=== PATIENT | female | born 1975 | race Caucasian/White ===

== ENCOUNTER 2021-08-14 06:57 | Observation (INO) | payer BC, MEDICAID ==
[~2021-08-14] VITALS: Ht 124.5 cm; Wt 65.0 kg
[2021-08-14 07:46] LABS: APPEARANCE,URINE Clear (CLEAR); BASOPHILS % (AUTO) 0.9 % (0.0-5.0); BILIRUBIN,URINE Negative (NEGATIVE); COLOR,URINE Yellow (YELLOW); EOSINOPHILS % (AUTO) 3.2 % (0.0-8.0); GLUCOSE, URINE (UA) Negative (NEGATIVE); HEMATOCRIT 42.3 % (36-48); KETONES,URINE Negative (NEGATIVE); LEUKOCYTE ESTERASE ,URINE Negative (NEGATIVE); LYMPHOCYTES % (AUTO) 29.8 % (21.0-51.0); MEAN CORPUSCULAR HEMOGLOBIN 29.9 pg (27.0-33.0); MEAN CORPUSCULAR HGB CONC 32.6 g/dL (32.0-36.0); MEAN CORPUSCULAR VOLUME 91.6 fL (79-99); MONOCYTES % (AUTO) 9.5 % (3.0-13.0); NEUTROPHILS % (AUTO) 56.3 % (40.0-77.0); NITRATE,URINE Negative (NEGATIVE); OCCULT BLOOD,URINE Negative (NEGATIVE); PH,URINE 8.5 (5.0-8.0); PLATELET COUNT (AUTO) 264 K/uL (130-400); PROTEIN,URINE Negative (NEGATIVE); RED BLOOD CELL COUNT(AUTO) 4.62 MIL/uL (4.00-5.50); RED CELL DISTRIBUTION WIDTH 13.1 % (11.0-15.5); UROBILINOGEN,URINE 0.2 mg/dL (0.2-1.0); WHITE BLOOD COUNT (AUTO) 7.6 K/uL (4.8-10.8)
[2021-08-14 07:55] LABS: AMPHET/METH SCREEN,URINE NEGATIVE (NEGATIVE); BARBITURATE SCREEN, URINE NEGATIVE (NEGATIVE); BENZODIAZEPINES SCREEN,URINE NEGATIVE (NEGATIVE); CANNABINOID SCREEN,URINE POSITIVE (NEGATIVE); COCAINE SCREEN,URINE NEGATIVE (NEGATIVE); OPIATE SCREEN,URINE NEGATIVE (NEGATIVE); PHENCYCLIDINE SCREEN,URINE NEGATIVE (NEGATIVE)
[2021-08-14 07:56] LABS: POTASSIUM 3.9 mmol/L (3.5-5.1)
[2021-08-14 07:58] LABS: ACETAMINOPHEN < 1 mcg/mL (10-30); ALCOHOL, BLOOD < 3 mg/dL (0-10); SALICYLATE < 2.8 mg/dL (2.8-20.0)
[2021-08-14 08:01] LABS: ALBUMIN 3.7 g/dL (3.5-5.0); BILIRUBIN,TOTAL 0.3 mg/dL (0.2-1.0); TOTAL PROTEIN, SERUM 6.3 g/dL (6.0-8.3)
[2021-08-14] MEDS ORDERED: GABA-533 PO (08:44)
[2021-08-14] MEDS ORDERED: BUPR-317 PO (08:45)
[2021-08-14] MEDS ORDERED: ONDANSETRON 4MG INJ IV PRN (11:00)
[2021-08-14] MEDS ORDERED: ACETAMINOPHEN 325 MG TAB PO PRN ×2 (11:00)
[2021-08-14] MEDS ORDERED: LORAZEPAM 2 MG/ML 1 ML VIAL IVP PRN (11:00)
[2021-08-14] MEDS ORDERED: TRAZ-185 PO (11:05)
[2021-08-14] MEDS ORDERED: ARIP2TAB3 PO (11:06)
[2021-08-14 12:00] VITALS: BP 140/92
[2021-08-14] MEDS: GABAPENTIN 300 MG CAPSULE PO SCH ×2 (14:00→20:18)
[2021-08-14 16:14] VITALS: BP 101/66
[2021-08-14] MEDS: FAMOTIDINE 20MG TAB PO SCH (20:10)
[2021-08-14 22:20] VITALS: BP 108/74
[2021-08-15 01:39] VITALS: BP 107/72
[2021-08-15 04:56] VITALS: BP 102/69
[2021-08-15 07:30] VITALS: BP 113/81
[2021-08-15] MEDS ORDERED: BUPROPION HCL 150 MG TABLET.SA PO SCH (09:00)
[2021-08-15] MEDS: GABAPENTIN 300 MG CAPSULE PO SCH (09:00)
[2021-08-15] MEDS: FAMOTIDINE 20MG TAB PO SCH (10:34)
[2021-08-15 11:00] VITALS: BP 118/78
== END 2021-08-15 15:30 | disposition home or self-care (01) ==
LOC: EDH 06:57 → EDHIP 10:38 → 3DH 12:00
PROVIDERS: ADMIT Internal Medicine; ATTEND Internal Medicine
DX: R56.9 Unspecified convulsions (principal); G47.00 Insomnia, unspecified; R32 Unspecified urinary incontinence; F12.90 Cannabis use, unspecified, uncomplicated; F41.8 Other specified anxiety disorders; F43.23 Adjustment disorder with mixed anxiety and depressed mood; Z79.899 Other long term (current) drug therapy
CPT/HCPCS: 36415 ×2; 70450; 70553; 80053; 80305; 81003; 81025; 84443; 85025; 93005; 99285; G0378 ×28; G0481